=== PATIENT | female | born 1995 | race Caucasian/White ===

== ENCOUNTER 2022-10-17 01:49 | Emergency (ER) | payer BC ==
[~2022-10-17] VITALS: Ht 160 cm; Wt 59.4 kg
[2022-10-17 01:53] VITALS: BP 122/75
--- NOTE | 2022-10-17 02:40 | NUR ---
Dr. Salmon examining patient.
[2022-10-17 02:45] VITALS: BP 122/75
--- NOTE | 2022-10-17 02:45 | NUR ---
Patient discharged with v/s stable. Written and verbal after care instructions given and explained by Dr. Salmon. Patient verbalized understanding. Ambulatory with steady gait. All questions addressed prior to discharge. Advised to follow up with PMD.
== END 2022-10-17 02:45 | disposition home or self-care (01) ==
LOC: MED 01:49
DX: O26.891 Other specified pregnancy related conditions, first trimester (principal); Z3A.01 Less than 8 weeks gestation of pregnancy
CPT/HCPCS: 81002; 81025; 99282